=== PATIENT | female | born 1945 | race Caucasian/White ===

== ENCOUNTER → 2017-11-28 | Outpatient (CLI) | payer OTHER ==
--- NOTE | ~2017-11-28 | 2DMMODE ---
[facility] [place] [address] 2 D/M-MODE ECHOCARDIOGRAM Name: JAMES VELASQUEZ Room #: REG [facility]#: [id number] Admission: 11/28/17 Attend Phys: Pablo Hayes MD Discharge: Date of : 49 Date of Service: 11/28/17 0943 Report #: [id number] THIS REPORT FOR: //name// APPROVED REPORT Study performed: 11/28/2017 09:00:22 EXAM: Comprehensive 2D, Doppler, and color-flow Echocardiogram Patient Location: Out-Patient Status: routine BSA: 1.65 HR: 57 bpm BP: 138/83 mmHg Rhythm: NSR Other Information Study Quality: Good Indications Dyspnea on exertion. 2D Dimensions RVDd: 34.12 mm LVEF(%): 63.15 (>50%) IVSd: 11.08 (7-11mm) LVOT Diam: 20.07 (18-24mm) LVDd: 37.09 mm PWd: 9.84 (7-11mm) Ascending Ao: 36.19 (22-36mm) LVDs: 24.65 (25-40mm) Aortic Root: 35.34 mm Dinero's LVEF: 63.15 % Volumes Left Atrial Volume (Systole) Single Plane 4CH: 30.65 mL Single Plane 2CH: 37.69 mL LA ESV Index: 21.00 mL/m2 Aortic Valve AoV Peak Ananda.: 1.41 m/s AO Peak Gr.: 7.95 mmHg LVOT Max P.47 mmHg LVOT Max V: 1.17 m/s DANIELA Vmax: 2.62 cm2 AI Vmax: 4.39 m/s AI Webster: 2.02 m/s2 AI PHT: 630.06 ms [facility] [place] [address] 2 D/M-MODE ECHOCARDIOGRAM Name: JAMES VELASQUEZ Room #: REG [facility]#: [id number] Admission: 11/28/17 Attend Phys: Pablo Hayes MD Discharge: Date of : 49 Date of Service: 11/28/17 0943 Report #: [id number] Mitral Valve E/A Ratio: 0.8 MV Decel. Time: 271.85 ms MV E Max Ananda.: 0.58 m/s MV A Ananda.: 0.69 m/s MV PHT: 78.84 ms IVRT: 101.50 ms Pulmonary Valve PV Peak Ananda.: 0.94 m/s PV Peak Gr.: 3.53 mmHg Tricuspid Valve TR Peak Ananda.: 2.39 m/s RAP Estimate: 5.00 mmHg TR Peak Gr.: 22.89 mmHg PA Pressure: 28.00 mmHg Left Ventricle The left ventricle is normal size. There is normal LV segmental wall motion. There is normal left ventricular wall thickness. Left ventricular systolic function is normal. LVEF is 55-60%. Mild diastolic dysfunction is present (impaired relaxation pattern). Right Ventricle The right ventricle is normal size. The right ventricular systolic function is normal. Atria The left atrium size is normal. The right atrium size is normal. Aortic Valve The aortic valve is normal in structure, trileaflet. Mild, central aortic regurgitation. There is no aortic valvular stenosis. Mitral Valve The mitral valve is normal in structure. No mitral regurgitation. No evidence of mitral valve stenosis. Tricuspid Valve The tricuspid valve is normal in structure. Mild tricuspid regurgitation. Estimated PAP is 25-30mmHg. Pulmonic Valve The pulmonary valve is normal in structure. Trace pulmonic regurgitation. [address] [address] 2 D/M-MODE ECHOCARDIOGRAM Name: FANTAPetrJAMES L Room #: REG [facility]#: [id number] Admission: 11/28/17 Attend Phys: Pablo Hayes MD Discharge: Date of : 49 Date of Service: 11/28/17 0943 Report #: [id number] Great Vessels The aortic root is normal in size. Ascending aorta measures at the upper limits of normal. IVC is normal in size and collapses >50% with inspiration. Pericardium There is no pericardial effusion. <Conclusion> Left ventricular systolic function is normal. There is normal LV segmental wall motion. LVEF 55-60%. Mild diastolic dysfunction The aortic valve is normal in structure, trileaflet. Mild, central aortic regurgitation, no stenosis. The mitral valve is normal in structure. No mitral regurgitation. Mild tricuspid regurgitation. Estimated pulmonary artery pressure of 25-30mmHg. There is no pericardial effusion. <ELECTRONICALLY SIGNED> By: Navid Chavis MD, [facility] 11/28/1743 2 2 Navid Chavis MD, FACC /INF
== END ==
LOC: CV 08:31
DX: I08.2 Rheumatic disorders of both aortic and tricuspid valves (principal); I51.89 Other ill-defined heart diseases

== ENCOUNTER → 2017-12-14 | Outpatient (CLI) | payer OTHER ==
--- NOTE | ~2017-12-14 | EXE ---
[facility] [place] [address] STRESS ECHOCARDIOGRAM Name: JAMES VELASQUEZ Room #: REG [facility]#: [id number] Admission: 12/14/17 Attend Phys: Pablo Hayes MD Discharge: Date of : 49 Date of Service: 12/14/17 1727 Report #: [id number] THIS REPORT FOR: //name// APPROVED REPORT Study performed: 12/14/2017 10:15:06 Exam: Stress Echocardiogram Indication: Dyspnea Patient Location: Out-Patient Stress Nurse: Zoe Ray RN Room #: Echo lab 2 Status: routine Ht: 5 ft 4 in HR: 67 bpm BP: 126/84 mmHg Medical History Medical History: No history of CAD, Fatigue Exercise History: Indeterminate Procedure The patient underwent an Exercise Stress Test using the Saad Protocol. Blood pressure, heart rate, and EKG were monitored. An Echocardiogram was performed by operating room surgical technician in four stages in quad fashion. At peak stress, four selected images were obtained and placed side by side with resting images for comparison. Stress Test Details Stress Test: Exercise stress testing was performed using a Saad protocol. HR Resting HR: 67 bpm Max Heart Rate (APMHR): 150 bpm Max HR Achieved: 153 bpm Target HR (85% APMHR): 127 bpm % of APMHR: 102 Recovery HR: 80 bpm HR response to stress: Normal HR response to stress BP Resting BP: 126/84 mmHg Max BP: 140/82 mmHg Recovery BP: 122/84 mmHg ECG [facility] [address] [place] [address] STRESS ECHOCARDIOGRAM Name: JAMES VELASQUEZ Elisa Room #: REG [facility]#: [id number] Admission: 12/14/17 Attend Phys: Pablo Hayes MD Discharge: Date of : 49 Date of Service: 12/14/171726 Report #: [id number] Clinical Reason for Termination: Maximal effort Exercise duration: 10 min 19 sec Highest Stage Achieved: Stage 4: 4.2 mph at 16% grade. Exercise capacity: 13.4 METs Overall Exercise Capacity for Age: Excellent Pre-Stress Echo The resting Echocardiogram showed normal left ventricular contractility with an estimated Ejection Fraction of about 55%. Post-Stress Echo The stress Echocardiogram showed normal left ventricular contractility with an estimated Ejection Fraction of about 60-65%. Clinical Normal augmentation of myocardial wall segments using a 17 segment model. Conclusion Clinical Response: Non-ischemic Exercise Capacity: Superior Stress ECG Response: Non-ischemic Stress Echo Images: Non-ischemic Other Information Study Quality: Good <ELECTRONICALLY SIGNED> By: Barry Sandoval MD, [facility] 12/14/171726 26 1727 Barry Sandoval MD, FACC /INF
== END ==
LOC: CV 06:19
DX: R06.00 Dyspnea, unspecified (principal)